=== PATIENT | female | born 1985 | race Caucasian/White ===

== ENCOUNTER 2016-09-16 21:12 | Emergency (ER) ==
[2016-09-16 22:06] LABS: MANUAL DIFF NEEDED? NO
[2016-09-16 22:08] LABS: BASO% 0.3 % (0.0-0.8); EOS# 0.08 X1000 (0.0-0.7); EOS% 1.1 % (0.0-10.0); HEMATOCRIT 37.5 % (37.0-47.0); HEMOGLOBIN 13.1 g/dL (12.0-16.0); IMM GRAN# 0.01 X1000 (0.0-0.04); IMM GRAN% 0.1 % (0.0-0.5); LYMPH# 1.89 X1000 (1.2-3.4); LYMPH% 24.9 % (20.5-51.1); MCH 31.3 PG (27-31); MCHC 34.9 g/dL (33-37); MCV 89.5 FL (81-99); MONO# 0.62 X1000 (0.11-0.59); MONO% 8.2 % (1.7-9.3); MPV 11.5 FL (7.4-10.4); NEUT% 65.4 % (42.2-75.2); PLT 151 X1000 (130-400); RBC 4.19 XMIL (4.2-5.4)
[2016-09-16 22:33] LABS: URINE SOURCE CLEAN CATCH
--- NOTE | 2016-09-16 22:44 | PROVIDER DOCUMENTATION ---
HPI-Female /OB/Breast - General Source: reports: patient - History of Present Illness-Female /OB Does patient report she is ?: Yes (8 weeks) Location of complaint: reports: suprapubic Radiation: reports: none Quality of Pain: reports: cramping Severity in ED: reports: mild, moderate Onset/Duration: reports: this afternoon Timing: reports: constant Context/Activities at Onset: reports: none Vaginal Symptoms: reports: no symptoms, discharge Urinary Symptoms: reports: no symptoms Related Symptoms: reports: no symptoms <Clemente Jimenez - Last Filed: 09/16/16 22:39> <Yojana Norman - Last Filed: 09/17/16 01:20> - General Chief Complaint: Female Stated Complaint: 8 WKS PREG-ABD PAIN Time Seen by Provider: 09/16/16 22:11 Allergies/Adverse Reactions: Patient Allergies Allergy/AdvReac Type Severity Reaction Status Date / Time Penicillins Allergy Unknown Unknown Verified 09/16/16 21:34 lidocaine Allergy RASH Verified 09/16/16 21:34 codeine [Codeine] AdvReac Mild Unknown Verified 09/16/16 21:34 Home Medications: No Home Medications 09/16/16 - History of Present Illness-Female /OB Nature of Presenting Problem: 30 y/o WF presents to the ED with low stomach pain and bilateral side pain that began today. Pt denies vaginal bleeding or other symptoms. She states she is 8 weeks and has an appointment with her OB tomorrow. This is the pt 4th and only had complication with the first. (Clemente Jimenez) Review of Systems - Adult - REVIEW OF SYSTEMS - ADULT Constitutional: denies: chills, fever Eyes: reports: no symptoms reported Ears, Nose, Mouth & Throat: reports: no symptoms reported Cardiovascular: reports: no symptoms reported Respiratory: reports: no symptoms reported Gastrointestinal: reports: abdominal pain. denies: diarrhea, nausea, rectal bleeding, vomiting Genitourinary: denies: dysuria, frequency, flank pain, hematuria, incontinence, urinary retention Musculoskeletal: reports: no symptoms reported Integumentary: reports: no symptoms reported Neurological: reports: no symptoms reported Psychiatric: reports: no symptoms reported Endocrine: reports: no symptoms reported Hematologic/Lymphatic: reports: no symptoms reported Allergic/Immunologic: reports: no symptoms reported All Other Systems: Reviewed and Negative <Clemente Jimenez - Last Filed: 09/16/16 22:39> Past History - Adult - PAST MEDICAL HISTORY-ADULT Review of Records: reports: Old Records Reviewed, Nursing Assessment Review, Medications Reviewed Neurological: reports: headaches/migraines, Seizures/Epilepsy Psychiatric: reports: anxiety - PRIOR SURGERIES/PROCEDURES Surgical/Procedure History: reports: none - PRIOR HOSPITALIZATIONS Prior Hospitalizations: reports: none - IMMUNIZATION STATUS Childhood Immunizations: See Nurse Assessment Flu Vaccine: See Nurse Assessment - FAMILY HISTORY Family History: reviewed, not pertinent - SOCIAL HISTORY Smoking: quit greater than 1 year Substance Use: alcohol Alcohol Use Frequency: occasionally Living Situation: family <Clemente Jimenez - Last Filed: 09/16/16 22:39> Physical Exam-General - PHYSICAL EXAM-ADULT Initial Vital Signs Reviewed: Yes - CONSTITUTIONAL General Appearance: appears well, alert, no apparent distress - EYES Eyes: PERRL/EOMI, pink conjunctivae - HEAD, EARS, NOSE, MOUTH & THROAT HENMT: moist mucous membranes, normal ENT inspection, TMs normal, pharynx normal - NECK Neck: non-tender, full range of motion, supple, normal inspection - RESPIRATORY Respiratory: lungs clear, normal breath sounds, no pleuratic chest pain, no respiratory distress, no accessory muscle use - CARDIOVASCULAR Cardiovascular: normal peripheral pulses, regular rate, rhythm - GASTROINTESTINAL (ABDOMEN) Abdominal Exam: normal bowel sounds, soft, tenderness (suprapubic) - MUSCULOSKELETAL Back Exam: normal inspection, no CVA tenderness, no vertebral tenderness Extremity: normal range of motion, non-tender, normal gait, normal inspection - SKIN Integumentary: normal color, normal turgor, warm/dry - NEUROLOGIC Neurologic: grossly normal, no motor/sensory deficits - PSYCHIATRIC Psych/Mental Status: normal mood/affect, normal thought content, normal thought process, oriented x 3 <Clemente Jimenez - Last Filed: 09/16/16 22:39> - GENITOURINARY Female Genitalia/Pelvic Exam: other (cervical os closed. no blood in vagina.). negative: tender w/ cervical motion, tender adnexa, tender uterus <Yojana Norman - Last Filed: 09/17/16 01:20> Progress <Clemente Jimenez - Last Filed: 09/16/16 22:39> - ULTRASOUND (By Radiology) 1 US Study: other (OB) US Results: single live IUP (8wks 2days). FHR 171 bpm. <Yojana Norman - Last Filed: 09/17/16 01:20> - PLAN OF CARE/RESULTS Progress/Plan/Lab Results: Laboratory Tests 09/16/16 09/16/16 09/16/16 22:00 22:00 22:00 WBC 7.59 RBC 4.19 L Hgb 13.1 Hct 37.5 MCV 89.5 MCH 31.3 H MCHC 34.9 RDW Std Deviation 12.1 Plt Count 151 MPV 11.5 H Immature Gran % (Auto) 0.1 Neut % (Auto) 65.4 Lymph % (Auto) 24.9 [place] % (Auto) 8.2 Eos % (Auto) 1.1 Baso % (Auto) 0.3 Immature Gran # (Auto) 0.01 Neut # (Auto) 4.97 Lymph # (Auto) 1.89 [place] # (Auto) 0.62 H Eos # (Auto) 0.08 Baso # (Auto) 0.02 Ser , Semi-Qnt 096520.0 Urine Source Urine Color Urine Clarity Urine pH Ur Specific [place] Urine Protein Urine Ketones Urine Blood Urine Nitrite Urine Bilirubin Urine Urobilinogen Urine Microscopic RBC Urine WBC Urine Microscopic WBC Ur Epithelial Cells Urine Bacteria Urine Glucose Blood Type O POSITIVE 09/16/16 22:20 WBC RBC Hgb Hct MCV MCH MCHC RDW Std Deviation Plt Count MPV Immature Gran % (Auto) Neut % (Auto) Lymph % (Auto) [place] % (Auto) Eos % (Auto) Baso % (Auto) Immature Gran # (Auto) Neut # (Auto) Lymph # (Auto) [place] # (Auto) Eos # (Auto) Baso # (Auto) Ser , Semi-Qnt Urine Source CLEAN CATCH Urine Color YELLOW Urine Clarity CLEAR Urine pH 7.0 Ur Specific [place] 1.010 Urine Protein NEGATIVE Urine Ketones NEGATIVE Urine Blood NEGATIVE Urine Nitrite NEGATIVE Urine Bilirubin NEGATIVE Urine Urobilinogen NORMAL Urine Microscopic RBC <10 Urine WBC NEGATIVE Urine Microscopic WBC <10 Ur Epithelial Cells <10 Urine Bacteria 2+ Urine Glucose NEGATIVE Blood Type Orders Category Date Time Status Pelvic set up DIRECTED Care 09/16/16 22:49 Active US OBS COMPLETE < 14 WKS [US] Stat Exams 09/16/16 22:49 Taken ABORH [BBK] Stat Lab 09/16/16 22:00 Completed CBC WITH DIFF [HEME] Stat Lab 09/16/16 22:00 Completed CHLAMYDIA AND GC BY PCR SWAB [GRIFFIN] Stat Lab 09/16/16 23:23 Received GRAM STAIN AND WET PREP [DIREX] Stat Lab 09/16/16 23:23 Completed QUANT TEST Stat Lab 09/16/16 22:[address] W/POSS RFLX CULT [URINALYSIS] Stat Lab 09/16/16 22:20 Completed URINE CULTURE [RM] Routine Lab 09/16/16 23:11 Ordered Vital Signs Temp Pulse Resp BP Pulse Ox 09/16/16 21:30 98.8 F 79 16 121/71 98 Penicillins Allergy (Unknown, Verified 09/16/16 21:34) Unknown lidocaine Allergy (Verified 09/16/16 21:34) RASH codeine [Codeine] Adverse Reaction (Mild, Verified 09/16/16 21:34) Unknown REPORTS HALLUCINATIONS No Home Medications 09/16/16 Laboratory 09/16/16 09/16/16 09/16/16 22:20 22:00 22:00 WBC 7.59 RBC 4.19 L Hgb 13.1 Hct 37.5 MCV 89.5 MCH 31.3 H MCHC 34.9 RDW Std Deviation 12.1 Plt Count 151 MPV 11.5 H Immature Gran % (Auto) 0.1 Neut % (Auto) 65.4 Lymph % (Auto) 24.9 [place] % (Auto) 8.2 Eos % (Auto) 1.1 Baso % (Auto) 0.3 Immature Gran # (Auto) 0.01 Neut # (Auto) 4.97 Lymph # (Auto) 1.89 [place] # (Auto) 0.62 H Eos # (Auto) 0.08 Baso # (Auto) 0.02 Ser , Semi-Qnt Urine Source CLEAN CATCH Urine Color YELLOW Urine Clarity CLEAR Urine pH 7.0 Ur Specific [place] 1.010 Urine Protein NEGATIVE Urine Ketones NEGATIVE Urine Blood NEGATIVE Urine Nitrite NEGATIVE Urine Bilirubin NEGATIVE Urine Urobilinogen NORMAL Urine Microscopic RBC <10 Urine WBC NEGATIVE Urine Microscopic WBC <10 Ur Epithelial Cells <10 Urine Bacteria 2+ Urine Glucose NEGATIVE Blood Type O POSITIVE 09/16/16 22:00 WBC RBC Hgb Hct MCV MCH MCHC RDW Std Deviation Plt Count MPV Immature Gran % (Auto) Neut % (Auto) Lymph % (Auto) [place] % (Auto) Eos % (Auto) Baso % (Auto) Immature Gran # (Auto) Neut # (Auto) Lymph # (Auto) [place] # (Auto) Eos # (Auto) Baso # (Auto) Ser , Semi-Qnt 874082.0 Urine Source Urine Color Urine Clarity Urine pH Ur Specific [place] Urine Protein Urine Ketones Urine Blood Urine Nitrite Urine Bilirubin Urine Urobilinogen Urine Microscopic RBC Urine WBC Urine Microscopic WBC Ur Epithelial Cells Urine Bacteria Urine Glucose Blood Type (Yojana Norman) Departure <Clemente Jimenez - Last Filed: 09/16/16 22:39> - Departure Time of Disposition Order: 01:18 Certified Medical Emergency: Emergent <Yojana Norman - Last Filed: 09/17/16 01:20> - Departure DIAGNOSIS: Intrauterine , Abdominal cramps Disposition: HOME 01 Condition: Good Additional Instructions: Follow up with your OB tomorrow at your scheduled appointment. ED Follow Up Instructions: You have been treated by a care provider in the Emergency Department. These instructions are being provided to you so you can have an understanding of how to care for yourself upon discharge. Upon discharge from the Emergency Department, you are responsible for making arrangements for follow-up care by a physician of your choice. Take all prescribed medications as directed. Return to the Emergency Department immediately for any new or worsening symptoms. You may call the Physician Referral phone number at [phone] to obtain a list of Physicians who are taking new patients. Attestation - Scribe Verification/Attestation Scribe:: Clemente Jimenez Acting as Scribe for:: Yojana Norman Scribe documention review:: This chart was documented by a scribe and accurately reflects the service the provider performed and the decisions made by the provider. - Physician/ Mid-level Attestation Patient care was provided by Mid-level provider (BIKE MECHANIC/PA):: Yes Mid-level provider:: Yojana Norman Mid-level documentation review:: The Mid-level provider documentation, treatment plan and medical decision making was reviewed by the physician who agrees with all treatment and medical decision making by the MLP. <Clemente Jimenez - Last Filed: 09/16/16 22:39> - Physician/ Mid-level Attestation Patient care was provided by Mid-level provider (BIKE MECHANIC/PA):: Yes Mid-level provider:: Yojana Norman Mid-level documentation review:: The Mid-level provider documentation, treatment plan and medical decision making was reviewed by the physician who agrees with all treatment and medical decision making by the MLP. <Yojana Norman - Last Filed: 09/17/16 01:20> Physician Attestation
[2016-09-16 23:06] LABS: BILIRUBIN URINE NEGATIVE (NEGATIVE); BLOOD URINE NEGATIVE (NEGATIVE); CLARITY CLEAR (CLEAR); COLOR YELLOW; GLUCOSE URINE NEGATIVE (NEGATIVE); LEUKOCYTES URINE NEGATIVE (NEGATIVE); NITRITE URINE NEGATIVE (NEGATIVE); PROTEIN URINE NEGATIVE (NEGATIVE); UROBILINOGEN URINE NORMAL
[2016-09-16 23:10] LABS: URINE RBC <10 /HPF (<10); URINE WBC <10 /HPF (<10)
[2016-09-16 23:11] LABS: URINE CULTURE PL NEEDED? YES; URINE EPITHELIAL CELLS <10 /HPF (<10)
[2016-09-17 01:40] VITALS: BP 113/72
--- NOTE | 2016-09-17 09:03 | Diag Imaging Result Document ---
PROCEDURE NAME: US OBS COMPLETE < 14 WKS - 09/16/2016 OBSTETRIC ULTRASOUND: COMPARISON: None available. FINDINGS: There is a single viable intrauterine gestation. A gestational sac and pole are identified. The cervix is closed and measures 3.9 cm in length. There is no evidence of subchorionic hemorrhage. The gestational age by ultrasound is 8 weeks, 2 days. The measured heart rate is 171 beats per minute. The left ovary is not identified. The right ovary is unremarkable. IMPRESSION: Single viable intrauterine gestation with no gross anomalies appreciated.
== END 2016-09-17 01:41 | disposition home or self-care (01) ==
LOC: P.ED 21:12
DX: O26.891 Other specified pregnancy related conditions, first trimester (principal); R10.9 Unspecified abdominal pain; N89.8 Other specified noninflammatory disorders of vagina; R10.819 Abdominal tenderness, unspecified site; Z3A.08 8 weeks gestation of pregnancy; Z87.891 Personal history of nicotine dependence
CPT/HCPCS: 76801; 81001; 84702; 85025; 86900; 86901; 87088; 87205; 87210; 87491; 87591

== ENCOUNTER 2017-04-08 19:04 | Inpatient (IN) ==
[2017-04-08 19:41] LABS: URINE SOURCE VOIDED
[2017-04-08 19:50] LABS: BILIRUBIN URINE NEGATIVE (NEGATIVE); BLOOD URINE 4+ (NEGATIVE); CLARITY VERY CLOUDY (CLEAR); COLOR YELLOW; GLUCOSE URINE NEGATIVE (NEGATIVE); LEUKOCYTES URINE 2+ (NEGATIVE); NITRITE URINE NEGATIVE (NEGATIVE); PH URINE 6.5; SP GRAVITY URINE 1.015; UROBILINOGEN URINE NORMAL
[2017-04-08] MEDS ORDERED: DEMEROL IM ONE (20:00)
[2017-04-08] MEDS ORDERED: PHENERGAN IM ONE (20:00)
[2017-04-08] MEDS ORDERED: LR 1,000 ML IV ONE (22:52)
[2017-04-08] MEDS ORDERED: STADOL IV ONE (22:55)
[2017-04-09] MEDS: LR 1,000 ML IV SCH ×4 (02:48→11:36)
[2017-04-09] MEDS: STADOL IV PRN ×2 (02:48→08:32)
[2017-04-09] MEDS ORDERED: TYLENOL PO PRN (08:27)
[2017-04-09] MEDS ORDERED: LR 1,000 ML IV SCH (08:27)
[2017-04-09] MEDS ORDERED: ZOFRAN IV PRN (08:27)
[2017-04-09] MEDS ORDERED: PITOCIN 30 UNITS/LR 30 UNITS/500 ML IV.SOLN IV SCH (08:27)
[2017-04-09] MEDS ORDERED: PEPCID IV PRN (08:27)
[2017-04-09] MEDS ORDERED: REGLAN PO ONE (08:27)
[2017-04-09] MEDS ORDERED: STADOL IV PRN (08:27)
[2017-04-09] MEDS ORDERED: PEPCID PO ONE (08:27)
[2017-04-09] MEDS ORDERED: SODIUM CHLORIDE 0.9% INJ SCH (08:30)
[2017-04-09 09:06] LABS: MANUAL DIFF NEEDED? NO
[2017-04-09 09:09] LABS: BASO% 0.2 % (0.0-0.8); EOS# 0.03 X1000 (0.0-0.7); EOS% 0.6 % (0.0-10.0); HEMATOCRIT 34.1 % (37.0-47.0); HEMOGLOBIN 11.6 g/dL (12.0-16.0); IMM GRAN# 0.04 X1000 (0.0-0.04); IMM GRAN% 0.7 % (0.0-0.5); LYMPH# 0.75 X1000 (1.2-3.4); MCH 31.4 PG (27-31); MCV 92.4 FL (81-99); MONO# 0.73 X1000 (0.11-0.59); MONO% 13.6 % (1.7-9.3); MPV 10.5 FL (7.4-10.4); NEUT% 70.9 % (42.2-75.2); PLT 120 X1000 (130-400); RBC 3.69 XMIL (4.2-5.4)
[2017-04-09] MEDS ORDERED: FENTANYL-BUPIV-NS 2 MCG-0.1% 200 ML EPIDURAL PRN (09:10)
[2017-04-09] MEDS ORDERED: ROCEPHIN 1 GM/NS 1 GM/50 ML IVPB IV ONE (16:13)
[2017-04-09] MEDS ORDERED: NS 250 ML IV SCH (16:16)
[2017-04-09] MEDS ORDERED: MINERAL OIL MISC ONE (16:17)
[2017-04-09] MEDS ORDERED: XYLOCAINE-MPF 1% INJ ONE (16:18)
[2017-04-09 16:57] LABS: MANUAL DIFF NEEDED? NO
[2017-04-09 16:59] LABS: BASO% 0.1 % (0.0-0.8); EOS# 0.02 X1000 (0.0-0.7); EOS% 0.3 % (0.0-10.0); HEMATOCRIT 34.8 % (37.0-47.0); HEMOGLOBIN 11.9 g/dL (12.0-16.0); IMM GRAN# 0.03 X1000 (0.0-0.04); IMM GRAN% 0.4 % (0.0-0.5); LYMPH# 1.04 X1000 (1.2-3.4); LYMPH% 14.7 % (20.5-51.1); MCH 31.6 PG (27-31); MCHC 34.2 g/dL (33-37); MCV 92.3 FL (81-99); MONO# 1.01 X1000 (0.11-0.59); MONO% 14.2 % (1.7-9.3); MPV 10.6 FL (7.4-10.4); NEUT% 70.3 % (42.2-75.2); PLT 145 X1000 (130-400); RBC 3.77 XMIL (4.2-5.4)
[2017-04-09] MEDS ORDERED: PERCOCET-5 PO PRN (19:42)
[2017-04-09] MEDS ORDERED: HYDROXYZINE PO PRN (19:42)
[2017-04-09] MEDS ORDERED: PITOCIN 30 UNITS/LR 30 UNITS/500 ML IV.SOLN IV ONE (19:42)
[2017-04-09] MEDS ORDERED: PITOCIN 20 UNITS/LR 20 UNITS/1,000 ML IV.SOLN IV SCH (19:42)
[2017-04-09] MEDS ORDERED: CYTOTEC PO PRN (19:42)
[2017-04-09] MEDS ORDERED: MINERAL OIL PO PRN (19:42)
[2017-04-09] MEDS ORDERED: M-M-R II VACCINE SUBQ ONE (19:42)
[2017-04-09] MEDS ORDERED: HYDROXYZINE IM PRN (19:42)
[2017-04-09] MEDS ORDERED: BENADRYL PO PRN (19:42)
[2017-04-09] MEDS ORDERED: BENADRYL IV PRN (19:42)
[2017-04-09] MEDS ORDERED: PERI MEDS (DERMOPLAST/NUPERCAINAL/TUCKS) MISC PRN (19:42)
[2017-04-09] MEDS ORDERED: AMBIEN PO PRN (19:42)
[2017-04-09] MEDS ORDERED: XYLOCAINE-MPF 1% INJ PRN (19:42)
[2017-04-09] MEDS ORDERED: BOOSTRIX VACCINE IM ONE (19:42)
[2017-04-09] MEDS ORDERED: PITOCIN IM PRN (19:42)
[2017-04-09] MEDS: PERICOLACE PO SCH ×2 (21:25→22:35)
[2017-04-09] MEDS: PERCOCET-10 PO PRN (22:36)
[2017-04-10] MEDS: MOTRIN PO PRN ×3 (04:14→20:38)
[2017-04-10] MEDS: NORCO-10 PO PRN ×4 (04:14→19:14)
[2017-04-10] MEDS: PEPCID PO PRN ×2 (04:17→20:38)
[2017-04-10 05:56] LABS: MANUAL DIFF NEEDED? NO
[2017-04-10 06:01] LABS: BASO% 0.1 % (0.0-0.8); EOS# 0.04 X1000 (0.0-0.7); EOS% 0.5 % (0.0-10.0); HEMATOCRIT 32.3 % (37.0-47.0); HEMOGLOBIN 10.7 g/dL (12.0-16.0); IMM GRAN# 0.02 X1000 (0.0-0.04); IMM GRAN% 0.3 % (0.0-0.5); LYMPH# 1.06 X1000 (1.2-3.4); LYMPH% 14.4 % (20.5-51.1); MCH 30.7 PG (27-31); MCHC 33.1 g/dL (33-37); MCV 92.8 FL (81-99); MONO# 0.95 X1000 (0.11-0.59); MONO% 12.9 % (1.7-9.3); MPV 10.7 FL (7.4-10.4); NEUT% 71.8 % (42.2-75.2); PLT 128 X1000 (130-400); RBC 3.48 XMIL (4.2-5.4)
[2017-04-10] MEDS: PERICOLACE PO SCH (20:38)
[2017-04-10] MEDS: NORCO-5 PO PRN (23:57)
[2017-04-11] MEDS: NORCO-5 PO PRN (03:59)
[2017-04-11] MEDS: MOTRIN PO PRN ×2 (04:00→15:28)
[2017-04-11 08:16] VITALS: BP 123/59
[2017-04-11] MEDS: PERCOCET-10 PO PRN ×3 (08:25→19:58)
[2017-04-11] MEDS: PEPCID PO PRN (19:58)
== END 2017-04-11 22:45 | disposition home or self-care (01) ==
LOC: P.NBC 19:04 → P.LD 19:06
PROVIDERS: ADMIT Obstetrics & Gynecology; ATTEND Obstetrics & Gynecology